=== PATIENT | female | born 1995 | race Two or more races ===

== ENCOUNTER 2020-11-28 13:42 | Outpatient (REF) | payer OTHER, SELFPAY ==
[2020-11-28 15:14] LABS: MANUAL DIFF FLAG NO
[2020-11-28 15:50] LABS: Basophils Absolute Auto 0.1 X10*3/uL (0.0-0.2); Basophils Percent Auto 0.7 % (0-2); Eosinophils Absolute Auto 0.4 X10*3/uL (0.0-0.4); Eosinophils Percent Auto 3.2 % (0-4); Hematocrit 38.6 % (37-47); Hemoglobin 13.3 g/dl (12.0-16.0); Imm Gran Abs Auto 0.04 X10*3/uL (0.00-0.03); Imm Gran Pct Auto 0.4 % (0.0-0.4); Lymphocytes Absolute Auto 2.9 X10*3/uL (1.2-4.9); Lymphocytes Percent Auto 25.2 % (20-40); Mean Corpuscular HGB Conc 34.5 g/dl (31.0-35.0); Mean Corpuscular Hemoglobin 31.1 pg (27.0-33.0); Mean Corpuscular Volume 90.2 fL (80-98); Mean Platelet Volume 10.5 fL (9.4-12.3); Monocytes Absolute Auto 1.1 X10*3/uL (0.1-1.2); Monocytes Percent Auto 9.5 % (2-11); Neutrophils Absolute Auto 6.9 X10*3/uL (2.0-8.3); Platelet Count 352 X10*3/uL (160-400); Red Blood Count 4.28 X10*6/uL (4.20-5.50); Red Cell Distribution Width 11.9 % (11.0-16.0); Retic HGB Equivalent 36.8 pg (30.0-35.0); Reticulocyte Percent 1.3 % (0.5-1.8); Reticulocytes Absolute 0.054 X10*6/uL (0.026-0.095); White Blood Count 11.4 X10*3/uL (4.8-10.8)
[2020-11-28 16:00] LABS: Iron 112 mcg/dL (30-160); Percent Iron Saturation 39 % (15-50); Total Iron Binding Capacity 289 mcg/dL (228-428); Unsaturated Iron Binding 177 ug/dL
[2020-11-28 16:22] LABS: Ferritin 114 ng/mL (10-122)
[2020-11-30 09:18] LABS: Folate 10.8 ng/mL (> or = 4.0); Vitamin B12 572 pg/mL (200-900)
== END 2020-11-28 13:43 | disposition home or self-care (01) ==
LOC: HO.HMGCLDS 13:42
PROVIDERS: PCP Internal Medicine; Visit Provider Internal Medicine
DX: R53.83 Other fatigue (principal)
CPT/HCPCS: 36415; 82607; 82728; 82746; 83540; 85025; 85045

== ENCOUNTER 2021-09-10 11:13 | Outpatient (REF) | payer OTHER, SELFPAY ==
[2021-09-10 11:23] LABS: MANUAL DIFF FLAG NO
[2021-09-10 11:34] LABS: Basophils Absolute Auto 0.1 X10*3/uL (0.0-0.2); Basophils Percent Auto 0.8 % (0-2); Eosinophils Absolute Auto 0.3 X10*3/uL (0.0-0.4); Eosinophils Percent Auto 3.3 % (0-4); Hematocrit 37.7 % (37.0-47.0); Hemoglobin 12.9 g/dl (12.0-16.0); Imm Gran Abs Auto 0.02 X10*3/uL (0.00-0.03); Imm Gran Pct Auto 0.2 % (0.0-0.4); Lymphocytes Absolute Auto 3.1 X10*3/uL (1.2-4.9); Lymphocytes Percent Auto 35.5 % (20-40); Mean Corpuscular HGB Conc 34.2 g/dl (31.0-35.0); Mean Corpuscular Volume 90.6 fL (80.0-98.0); Mean Platelet Volume 9.6 fL (9.4-12.3); Monocytes Absolute Auto 0.7 X10*3/uL (0.1-1.2); Monocytes Percent Auto 8.3 % (2-11); Neutrophils Absolute Auto 4.5 x10*3/uL (2.0-8.3); Neutrophils Percent Auto 51.9 % (45-73); Platelet Count 307 X10*3/uL (160-400); Red Blood Count 4.16 X10*6/uL (4.20-5.50); Red Cell Distribution Width 11.9 % (11.0-16.0); White Blood Count 8.6 X10*3/uL (4.8-10.8)
[2021-09-10 11:44] LABS: Estimated Average Glucose 100 mg/dL; Hemoglobin A1c % 5.1 %
[2021-09-10 12:21] LABS: Alanine Aminotransferase 25 U/L (0-31); Albumin Level 4.2 g/dL (3.5-5.0); Alkaline Phosphatase 73 U/L (39-117); Anion Gap 11 (12-20); Aspartate Amino Transferase 24 U/L (5-31); Bilirubin Total 0.6 mg/dL (0.0-1.0); Blood Urea Nitrogen 17 mg/dL (9-16); Calcium 9.7 mg/dL (8.4-10.2); Carbon Dioxide 24 mmol/L (22-29); Chloride 106 mmol/L (96-108); Cholesterol 186 mg/dL; Estimated Glomerular Filt Rate > 60; Glucose Fasting 92 mg/dL (60-99); HDL Cholesterol 47 mg/dL; LDL Cholesterol Calculated 128 mg/dl; Potassium 4.1 mmol/L (3.3-5.1); Sodium 137 mmol/L (135-145); Total Protein 7.9 g/dL (6.5-8.0); Triglycerides 55 mg/dL
[2021-09-10 12:32] LABS: Vitamin D 25-OH Total 27.2 ng/mL (>30)
[2021-09-10 13:13] LABS: Appearance Urine HAZY; Color Urine YELLOW; Glucose Urine UA NEG (NEG); Leukocyte Esterase Urine NEG (NEG); Nitrite Urine NEG (NEG); Specific Gravity - Urine >= 1.030 (1.005-1.025); UACC Culture Trigger NO; Urine Blood 1+ (NEG); Urine Ketones NEG (NEG); Urine Protein NEG (NEG-TRACE)
[2021-09-10 13:28] LABS: Squamous Epithelial Cell Urine 3+ /LPF; WBC Urine 0-2 /HPF (0-4)
[2021-09-10 13:29] LABS: Bacteria Urine TRACE /LPF; Mucus Urine 2+ /LPF
[2021-09-16 22:17] LABS: Testosterone, Free 7.8 pg/mL (0.1-6.4); Testosterone, Total 44 ng/dL (2-45)
== END 2021-09-10 11:14 | disposition home or self-care (01) ==
LOC: HO.LAB 11:13
PROVIDERS: PCP Internal Medicine; Visit Provider Internal Medicine
DX: Z00.00 Encounter for general adult medical examination without abnormal findings (principal); E28.2 Polycystic ovarian syndrome; L81.9 Disorder of pigmentation, unspecified; E55.9 Vitamin D deficiency, unspecified
CPT/HCPCS: 36415; 80053; 80061; 81001; 82306; 83036; 84402; 84403; 84443; 85025

== ENCOUNTER 2022-11-01 12:18 | Outpatient (REF) | payer OTHER, SELFPAY ==
--- NOTE | ~2022-11-01 | XR_ITS ---
EXAMINATION: XR CHEST CLINICAL INFORMATION: Dyspnea COMPARISON: None available. TECHNIQUE: 2 views of the chest were obtained. FINDINGS: No significant abnormality is noted involving the heart, lungs, mediastinum, bony thorax or soft tissues. XR/XR chest 2V IMPRESSION: Unremarkable examination.
[2022-11-01 12:32] LABS: MANUAL DIFF FLAG NO
[2022-11-01 12:53] LABS: Basophils Absolute Auto 0.1 X10*3/uL (0.0-0.2); Eosinophils Absolute Auto 0.5 X10*3/uL (0.0-0.4); Eosinophils Percent Auto 4.6 % (0-4); Hematocrit 40.3 % (37.0-47.0); Hemoglobin 13.8 g/dl (12.0-16.0); Imm Gran Abs Auto 0.04 X10*3/uL (0.00-0.03); Imm Gran Pct Auto 0.4 % (0.0-0.4); Lymphocytes Percent Auto 30.5 % (20-40); Mean Corpuscular HGB Conc 34.2 g/dl (31.0-35.0); Mean Corpuscular Hemoglobin 31.4 pg (27.0-33.0); Mean Corpuscular Volume 91.8 fL (80.0-98.0); Mean Platelet Volume 9.8 fL (9.4-12.3); Monocytes Absolute Auto 0.7 X10*3/uL (0.1-1.2); Monocytes Percent Auto 7.4 % (2-11); Neutrophils Absolute Auto 5.4 x10*3/uL (2.0-8.3); Neutrophils Percent Auto 56.1 % (45-73); Platelet Count 308 X10*3/uL (160-400); Red Blood Count 4.39 X10*6/uL (4.20-5.50); Red Cell Distribution Width 12.3 % (11.0-16.0); White Blood Count 9.7 X10*3/uL (4.8-10.8)
[2022-11-01 13:14] LABS: Estimated Average Glucose 97 mg/dL
[2022-11-01 13:26] LABS: Appearance Urine Cloudy; Color Urine Yellow; Glucose Urine UA Negative (Negative); Leukocyte Esterase Urine Trace (Negative); Nitrite Urine Negative (Negative); PH 8.5 (5.0-9.0); UMIC TRIGGER UACC YES; Urine Blood Small (1+) (Negative); Urine Ketones Negative (Negative); Urine Protein Negative (Neg-Trace)
[2022-11-01 13:32] LABS: Bacteria Urine Trace (None Seen); Hyaline Casts Urine 0-2 /LPF (0-2); Squamous Epithelial Cell Urine >20 /HPF (0-2); WBC Urine 0-5 /HPF (0-5)
[2022-11-01 13:54] LABS: Alanine Aminotransferase 22 U/L (0-31); Albumin Level 4.5 g/dL (3.5-5.0); Alkaline Phosphatase 90 U/L (39-117); Anion Gap 10 (12-20); Aspartate Amino Transferase 24 U/L (5-31); Bilirubin Total 0.4 mg/dL (0.0-1.0); Blood Urea Nitrogen 13 mg/dL (9-16); Calcium 10.2 mg/dL (8.4-10.2); Carbon Dioxide 27 mmol/L (22-29); Chloride 106 mmol/L (96-108); Estimated Glomerular Filt Rate > 60; Glucose Fasting 88 mg/dL (60-99); Potassium 4.3 mmol/L (3.3-5.1); Sodium 139 mmol/L (135-145); Total Protein 8.3 g/dL (6.5-8.0)
[2022-11-01 14:10] LABS: TSH reflex Free T4 0.77 uIU/mL (0.32-4.0); Vitamin D 25-OH Total 38.3 ng/mL (>30)
== END 2022-11-01 12:19 | disposition home or self-care (01) ==
LOC: HO.XRAY 12:18
PROVIDERS: PCP Internal Medicine; Visit Provider Internal Medicine
DX: Z00.00 Encounter for general adult medical examination without abnormal findings (principal); R06.00 Dyspnea, unspecified; E28.2 Polycystic ovarian syndrome; E55.9 Vitamin D deficiency, unspecified; R73.9 Hyperglycemia, unspecified; R30.0 Dysuria
CPT/HCPCS: 36415; 71046; 80053; 81001; 82306; 83036; 84443; 85025

== ENCOUNTER 2023-01-05 16:26 | Outpatient (AMB) | payer OTHER, SELFPAY ==
--- NOTE | 2023-01-05 16:27 | MHC.OFFVIS ---
Intake Vital Signs 01/05/23 16:29 Height 5 ft 4 in Weight 138 lb 14.259 oz BMI 23.8 BP 104/50 L Blood Pressure Location Lt brachial Position Sitting Pulse 56 Pulse Source Pulse Oximeter Intake Visit Reasons: PCOS Intake Note: New patient present today for PCOS. Previously managed by PCP. 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 Menarche was age age 14 . Currently 8 wks but menses have been normal OCP use: No Metformin use: No Weight gain: No Hirsutism/hyperandrogenism: No Ovarian U/S: Y T2DM or acanthosis: N Lipids: N BP: N Labs: She had a complete workup including DHEA-S, testosterone, 17 hydroxyprogesterone which proved to show PCOS PFSH Medical History Anxiety PCOS (polycystic ovarian syndrome) Surgical History No pertinent past surgical history Family History Father Medical history unknown Mother Osteoarthritis Maternal Grandmother Hypertension Social History (Updated 09/13/22 @ 19:07 by Parker Yip MD) Housing: Apartment Alcohol intake: current Alcohol intake frequency: holidays/special occasions only Patient Tobacco Use Status: Never used Tobacco e-Cigarette/Vaping Use: Never Used Second Hand Smoke Exposure: No Substance Use Type: Marijuana service: No Current occupational status: employed Cognitive needs: No Hearing needs: No Vision needs: No Physical Exam Const Other: There is absence of cushingoid features. Thyroid gland is normal size weighs about 15 g. There are no thyroid nodules palpated. Lungs are clear to auscultation. Heart is S1-S2. Abdominal exam is benign Assessment & Plan Assessment & Plan (1) PCOS (polycystic ovarian syndrome): Code(s): E28.2 - Polycystic ovarian syndrome Plan: This is a 27-year-old white female with history of PCOS. Alternative diagnosis should his adrenal tumor, ovarian tumor, congenital adrenal hyperplasia have been ruled out. She is currently , nonobese and does not have significant hirsutism The plan is to have the patient returned to the care of her instructor adjunct surgical technician and primary care and return to endocrinology as needed. It might be helpful after the to have the patient have a nutritional consult at some point Coding Level of Care Code New Pt Level 4 (51138) Diagnoses PCOS (polycystic ovarian syndrome) E28.2
[2023-01-05 16:29] VITALS: BP 104/50; PULSE 56; BMI 23.8
== END 2023-01-05 16:48 | disposition home or self-care (01) ==
PROVIDERS: PCP Internal Medicine; Visit Provider Internal Medicine Endocrinology, Diabetes & Metabolism
DX: E28.2 Polycystic ovarian syndrome (principal)
CPT/HCPCS: 99204

== ENCOUNTER → 2023-01-05 16:26 | Outpatient (BNVA) | payer OTHER, SELFPAY | PROVIDERS: PCP Internal Medicine; Visit Provider Internal Medicine Endocrinology, Diabetes & Metabolism | DX: O99.281 Endocrine, nutritional and metabolic diseases complicating pregnancy, first trimester (principal); E28.2 Polycystic ovarian syndrome; O99.321 Drug use complicating pregnancy, first trimester; F12.20 Cannabis dependence, uncomplicated; Z3A.08 8 weeks gestation of pregnancy | CPT/HCPCS: 99202 ==

== ENCOUNTER 2023-01-13 16:38 | Outpatient (AMB) | payer OTHER, SELFPAY ==
[2023-01-13 16:40] VITALS: BP 112/68; PULSE 81; O2SAT 98; BMI 24.5
--- NOTE | 2023-01-13 16:40 | MHC.PC.OV ---
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 Accompanied by: Self / Same As Patient Allergies No Known Allergies Allergy (Verified 01/14/23 20:45) Medication List - Last Reconciled 01/14/23 by Parker Yip MD bupropion HCl 300 mg PO QAM 30 days PNV,calcium 60-xymq-wbnhm acid 27 mg iron- 1 mg ( Vitamins Plus Low Iron) 1 tab PO DAILY Tobacco use date assessed: 01/13/23 Dental Screening Dental Screen Date: 01/13/23 Did you have a dental visit in the last 12 months?: Yes Did you have a dental problem in the last 6 months where you did not have access to dental care?: No Was dental information given to patient?: Patient has dentist HPI 4 month f/u HPI Details Patient comes in today for her follow up visit States that she feels okay Denies any headaches or dizziness Denies any chest pain Still has some mild SOB at times; think she was supposed to have her pulmonary function test done a couple of days ago but she did not make her appointment No nausea/vomiting, no abdominal pain No change in bowel habits noted Adds that she has a large bald spot on the left side of her scalp that she has had for a while now but states that it seems to be getting bigger in size lately Denies any itching or pain over the bald area on her scalp Would like to know how she did on her labs done a couple of months ago PFSH Medical History Anxiety PCOS (polycystic ovarian syndrome) Surgical History No pertinent past surgical history Family History Father Medical history unknown Mother Osteoarthritis Maternal Grandmother Hypertension Social History Housing: Apartment Alcohol intake: current Alcohol intake frequency: holidays/special occasions only Patient Tobacco Use Status: Never used Tobacco e-Cigarette/Vaping Use: Never Used Second Hand Smoke Exposure: No Substance Use Type: Marijuana service: No Current occupational status: employed Cognitive needs: No Hearing needs: No Vision needs: No Questionnaire PHQ-9 Over the last 2 weeks, how often have you been bothered by any of the following problems? 1. Little interest or pleasure in doing things: not at all 2. Feeling down, depressed, or hopeless: not at all 3. Trouble falling or staying asleep, or sleeping too much: not at all 4. Feeling tired or having little energy: not at all 5. Poor appetite or overeating: not at all 6. Feeling bad about yourself - or that you are a failure or have let yourself or your family down: not at all 7. Trouble concentrating on things, such as reading the newspaper or watching television: not at all 8. Moving or speaking so slowly that other people could have noticed. Or the opposite - being so fidgety or restless that you have been moving around a lot more than usual: not at all 9. Thoughts that you would be better off or of hurting yourself in some way: not at all Total score: 0 Depression Screening Interpretation: Negative 23140 - PHQ-9 Billing: Yes Source: Developed by Drs. Solis Gray, Sloane Ordoñez, Faraz Cunningham and colleagues, with an educational valeria from [employer]. Thrive Questionnaire Date Thrive assessed: 01/13/23 I am a: Patient What is your living situation today?: I have a steady place to live Within the past 12 months, did the food you bought not last and you didn't have the money to get more?: Never true Within the past 12 months, did you worry whether your food would run out before you got money to buy more?: Never true Do you have trouble paying for medicines?: No Do you have trouble getting transportation to medical appointments?: No Do you have trouble paying your heating and electricity bill?: No Do you have trouble taking care of your child, family member or friend?: No Do you have trouble with day-to-day activities such as bathing, preparing meals, shopping, managing finances, etc.?: No Are you currently unemployed and looking for a job?: No Are you interested in more education?: No Please select the resources that you would like help with: None Currently or been in a relationship where the following occur: no concerns reported AUDIT C Alcohol Use Questionnaire (AUDIT-C) 1. How often do you have a drink containing alcohol?: Monthly or less 2. How many drinks containing alcohol do you have on a typical day when you are drinking?: 1 or 2 3. How often do you have six or more drinks on one occasion?: Never Total Score: 1 Score Reviewed/Action Taken: Yes NATALI-7 AMB Questionnaire NATALI-7 Date NATALI - 7 assessed: 01/13/23 Feeling nervous, anxious, or on edge: 2 = More than half the days Not being able to stop or control worryin = More than half the days Worrying too much about different things: 2 = More than half the days Trouble relaxin = More than half the days Being so restless that it is hard to sit still: 2 = More than half the days Becoming easily annoyed or irritable: 2 = More than half the days Feeling afraid as if something awful might happen: 2 = More than half the days Total NATALI-7 score (0-4 normal; 5-9 mild; 10-14 moderate; 15-21 severe): 14 Source: Developed by Drs. Solis Gray, Sloane Ordoñez, Faraz Cunningham and colleagues, with an educational valeria from [employer]. Review of Systems Const Denies fatigue, Denies fever(s) and Denies headache(s) ENT Denies dysphagia, Denies dizziness, Denies otalgia, Denies headache(s), Denies neck pain, Denies odynophagia and Denies sore throat Card Denies chest pain, Denies rapid heart rate, Denies irregular heart rhythm, Denies palpitations and Denies dyspnea (but reports some chest tightness at times) Resp Denies chest congestion, Denies cough, Denies dyspnea (but reports some chest tightness at times) and Denies wheezing GI Denies abdominal pain, Denies constipation, Denies dysphagia, Denies heartburn, Denies diarrhea, Denies nausea, Denies odynophagia and Denies vomiting Denies urinary frequency, Denies dysuria and Denies urinary urgency Musc Denies back pain, Denies arthralgias and Denies neck pain Skin/Breast Details: (+) large bald spot on the left side of her scalp - states that this appears to be getting bigger in size lately Neuro Denies dizziness, Denies headache(s) and Denies paresthesias Psych Denies anxiety (better controlled on current Rx) and Denies depression Endo Denies fatigue and Denies palpitations Randal/Lymph Denies easy bruising Aller/Immun Denies wheezing Physical exam (Primary Care) Vital Signs: Last Vital Signs Pulse 81 01/13/23 16:40 BP 112/68 01/13/23 16:40 Pulse Ox 98 01/13/23 16:40 Oxygen Delivery Method Room Air 01/13/23 16:40 BMI result Body Mass Index 24.5 Tobacco/Smoking Status: Tobacco use Status Tobacco use date assessed 01/13/23 01/13/23 16:42 Patient Tobacco Use Status Never used Tobacco 01/13/23 16:42 e-Cigarette/Vaping Use Never Used 01/13/23 16:42 PHQ-9: PHQ-9 Score PHQ-9: Total score 0 01/14/23 20:47 Depression Screening Interpretation: Negative Thrive Assessment: Date of Thrive Assessment Date Thrive assessed 01/13/23 01/13/23 16:42 Currently or been in a relationship where the following occur: no concerns reported Const General: no acute distress and awake HENMT Ears: external ears normal and TM's normal bilaterally Throat: Yes posterior oropharynx normal and Yes tonsils normal (no TP congestion) Neck Neck: Yes no lymphadenopathy and Yes supple Thyroid: Thyroid normal Resp Auscultation: clear to auscultation bilaterally, no rales and no wheezes Cardio Rate: regular rate Rhythm: regular rhythm Heart sounds: no murmurs GI Palpation (GI): Soft to palpation and nontender Auscultation: normal bowel sounds General: Yes no CVA tenderness Back/Spine/Pelvis Back: no CVA tenderness Thoracic/Lumbar Spine: thoracic and lumbar spine normal to inspection Skin Other: (+) large circular patch of hair loss on her left parietal scalp area Rashes: no rashes Extrem General: Yes no clubbing, cyanosis or edema Results Reviewed Results Reviewed: Laboratory Tests 11/01/22 11/01/22 11/01/22 12:30 12:31 12:31 WBC 9.7 Hgb 13.8 Hct 40.3 Plt Count 308 Sodium 139 Potassium 4.3 Creatinine 0.77 Estimated GFR > 60 Fasting Glucose 88 Hemoglobin A1c % Calcium 10.2 AST 24 ALT 22 25-OH Vitamin D Total 38.3 TSH 0.77 Ur Specific Casey 1.020 Urine Protein Negative Urine Glucose (UA) Negative Urine Blood Small (1+) H 11/01/22 12:31 WBC Hgb Hct Plt Count Sodium Potassium Creatinine Estimated GFR Fasting Glucose Hemoglobin A1c % 5.0 Calcium AST ALT 25-OH Vitamin D Total TSH Ur Specific Casey Urine Protein Urine Glucose (UA) Urine Blood Assessment and Plan Assessment & Plan (1) PCOS (polycystic ovarian syndrome): Code(s): E28.2 - Polycystic ovarian syndrome Plan: Results of her labs done a couple of months ago reviewed and discussed with patient Follow up with endocrinology and with 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 as scheduled (2) Alopecia: Code(s): L65.9 - Nonscarring hair loss, unspecified Plan: Will refer her to Dermatology for further evaluation and management of the enlarging bald spot on her left parietal scalp area (3) Dyspnea: Comment: Symptoms are more of on and off chest tightness and non-specific lung pain with deep breathing Code(s): R06.00 - Dyspnea, unspecified Qualifiers: Dyspnea type: unspecified Qualified Code(s): R06.00 - Dyspnea, unspecified Plan: Patient is advised that her chest x-rays done a few months ago came out normal add that her respiratory symptoms are most likely related to her chronic marijuana smoking She was referred for PFTs for further evaluation - was scheduled for this a few days ago but she reportedly missed her appt Is instructed to contact the respiratory department on her own LEISA so she can get her PFT rescheduled (4) Marijuana smoker, continuous: Comment: Has been smoking a lot of marijuana (>10 rolls a day) for over 10 years Code(s): F12.90 - Cannabis use, unspecified, uncomplicated Plan: Chest x-rays done a few months ago came out normal Counseled on smoking cessation - advised to at least start cutting back on her smoking marijuana (5) Anxiety: Code(s): F41.9 - Anxiety disorder, unspecified Plan: Continue Bupropion XL 300 mg QD - states that her anxiety is well controlled on her current medication Plan To return in August 2023 for her next annual physical examination Orders: Referrals Dermatology Referral L65.9 - Nonscarring hair loss, unspecified Coding Level of Care Code Est Pt Level 4 (81220) Diagnoses PCOS (polycystic ovarian syndrome) E28.2 Alopecia L65.9 Dyspnea R06.00 Dyspnea type: unspecified Marijuana smoker, continuous F12.90 Anxiety F41.9
== END 2023-01-13 17:25 | disposition home or self-care (01) ==
PROVIDERS: PCP Internal Medicine; Visit Provider Internal Medicine
DX: E28.2 Polycystic ovarian syndrome (principal); F41.9 Anxiety disorder, unspecified; L65.9 Nonscarring hair loss, unspecified; R06.00 Dyspnea, unspecified; F12.90 Cannabis use, unspecified, uncomplicated
CPT/HCPCS: 99214

== ENCOUNTER 2023-12-27 14:29 | Outpatient (AMB) | payer OTHER, SELFPAY ==
[2023-12-27 14:32] VITALS: BP 102/60; PULSE 70; O2SAT 98; BMI 28.1
--- NOTE | 2023-12-27 14:32 | A.OFFPC_ITS ---
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 per policy Accompanied by: Self / Same As Patient Allergies No Known Allergies Allergy (Verified 12/27/23 14:59) Medication List - Last Reconciled 12/27/23 by Parker Yip MD bupropion HCl XL 300 mg PO QAM 30 days PNV,calcium 81-tcwz-ctmhh acid 27 mg iron- 1 mg ( Vitamins Plus Low Iron ) 1 tab PO DAILY Tobacco use date assessed: 12/27/23 Dental Screening Dental Screen Date: 12/27/23 HPI FMLA Depression HPI Details Patient comes in today for her follow up visit States that she has been out of work on maternity leave since 08/05/2023, which ended a few weeks ago on 12/05/2023 States that she has been experiencing increased depression, likely depression, since July 2023 She has been on Wellbutrin XL 300 mg QD, which she feels helps, but states that she still has recurrent swings in her mood often She has apparently been taking her Wellbutrin XL only on an as needed basis instead of daily as she was supposed to She would like to see if she can get a note from us to allow her to extend her leave and continue to stay out of work for some more time to deal with her depression She denies any headaches or dizziness Denies any chest pains, no SOB No nausea/vomiting, no abdominal pain No change in bowel habits noted [facility] Medical History (Updated 12/27/23 @ 15:23 by Parker Yip MD) Anxiety PCOS (polycystic ovarian syndrome) Surgical History No pertinent past surgical history Family History Father Medical history unknown Mother Osteoarthritis Maternal Grandmother Hypertension Social History Housing: Apartment Alcohol intake: current Alcohol intake frequency: holidays/special occasions only Patient Tobacco Use Status: Never used Tobacco e-Cigarette/Vaping Use: Never Used Second Hand Smoke Exposure: No Substance Use Type: Marijuana service: No Current occupational status: employed Cognitive needs: No Hearing needs: No Vision needs: No Questionnaire PHQ-9 Over the last 2 weeks, how often have you been bothered by any of the following problems? 1. Little interest or pleasure in doing things: several days 2. Feeling down, depressed, or hopeless: several days 3. Trouble falling or staying asleep, or sleeping too much: more than half the days 4. Feeling tired or having little energy: several days 5. Poor appetite or overeating: not at all 6. Feeling bad about yourself - or that you are a failure or have let yourself or your family down: not at all 7. Trouble concentrating on things, such as reading the newspaper or watching television: several days 8. Moving or speaking so slowly that other people could have noticed. Or the op posite - being so fidgety or restless that you have been moving around a lot more than usual: not at all 9. Thoughts that you would be better off or of hurting yourself in some way: not at all Total score: 6 Depression Screening Interpretation: Positive Depression Screening Follow-up: Existing condition and In treatment Depression Screening Done: Yes 65272 - PHQ-9 Billing: Yes Source: Developed by Drs. Solis Gray, Sloane Ordoñez, Faraz Cunningham and colleagues, with an educational valeria from [employer]. Thrive Questionnaire Date Thrive assessed: 12/27/23 I am a: Patient What is your living situation today?: I have a steady place to live Within the past 12 months, did the food you bought not last and you didn't have the money to get more?: Never true Within the past 12 months, did you worry whether your food would run out before you got money to buy more?: Never true Do you have trouble paying for medicines?: No Do you have trouble getting transportation to medical appointments?: No Do you have trouble paying your heating and electricity bill?: No Do you have trouble taking care of your child, family member or friend?: No Do you have trouble with day-to-day activities such as bathing, preparing meals, shopping, managing finances, etc.?: No Are you currently unemployed and looking for a job?: No Are you interested in more education?: No Please select the resources that you would like help with: None Currently or been in a relationship where the following occur: No concerns reported THRIVE Score: 0 AUDIT C Alcohol Use Questionnaire (AUDIT-C) 1. How often do you have a drink containing alcohol?: Monthly or less 2. How many drinks containing alcohol do you have on a typical day when you are drinking?: 1 or 2 3. How often do you have six or more drinks on one occasion?: Never Total Score: 1 Score Reviewed/Action Taken: Yes NATALI-7 AMB Questionnaire NATALI-7 Date NATALI - 7 assessed: 12/27/23 Source: Developed by Drs. Solis Gray, Sloane Ordoñez, Faraz Cunningham and colleagues, with an educational valeria from [employer]. Review of Systems Const Denies chills, Reports fatigue, Denies fever(s) and Denies headache(s) ENT Denies dysphagia, Denies dizziness, Denies otalgia, Denies headache(s), Denies neck pain, Denies odynophagia and Denies sore throat Card Denies chest pain, Denies palpitations and Denies dyspnea Resp Denies cough and Denies dyspnea GI Denies abdominal pain, Denies constipation, Denies dysphagia, Denies heartburn, Denies diarrhea, Denies nausea, Denies odynophagia and Denies vomiting Denies difficulty voiding, Denies nocturia, Denies dysuria and Denies urinary urgency Musc Denies back pain and Denies neck pain Skin/Breast Denies rash Neuro Denies dizziness and Denies headache(s) Psych Reports anxiety and Reports depression Endo Reports fatigue and Denies palpitations Physical exam (Primary Care) Vital Signs: Last Vital Signs Pulse 70 12/27/23 14:32 BP 102/60 12/27/23 14:32 Pulse Ox 98 12/27/23 14:32 Oxygen Delivery Method Room Air 12/27/23 14:32 BMI result Body Mass Index 28.1 Tobacco/Smoking Status: Tobacco use Status Tobacco use date assessed 12/27/23 12/27/23 14:33 Patient Tobacco Use Status Never used Tobacco 12/27/23 14:33 e-Cigarette/Vaping Use Never Used 12/27/23 14:33 PHQ-9: PHQ-9 Score PHQ-9: Total score 0 12/27/23 14:43 Depression Screening Interpretation: Positive Depression Screening Follow-up: Existing condition and In treatment Thrive Assessment: Date of Thrive Assessment Date Thrive assessed 12/27/23 12/27/23 14:33 Currently or been in a relationship where the following occur: No concerns reported Const General: no acute distress and alert HENMT Throat: Yes posterior oropharynx normal and Yes tonsils normal (no TP congestion) Neck Neck: Yes no lymphadenopathy and Yes supple Thyroid: Thyroid normal Resp Auscultation: clear to auscultation bilaterally, no rales and no wheezes Cardio Rate: regular rate Rhythm: regular rhythm Heart sounds: no murmurs GI Palpation (GI): Soft to palpation and nontender Auscultation: normal bowel sounds General: Yes no CVA tenderness Back/Spine/Pelvis Back: no CVA tenderness Thoracic/Lumbar Spine: No lumbar spinal tenderness Skin Rashes: no rashes Extrem General: Yes no clubbing, cyanosis or edema Assessment and Plan Assessment & Plan (1) depression: Code(s): F53.0 - depression Plan: Have advised patient that Her Wellbutrin XL 300 mg QD should be taken daily for it to help with her depression and that taking it on a PRN basis will not help - advised her to start taking it daily beginning tomorrow morning and to at least continue on it until her next appointment Will okay the office to give her a note to keep her out of work for a few more weeks Plan To return in 3 months for her next annual physical examination Coding Level of Care Code Est Pt Level 3 (80799) Diagnoses depression F53.0
== END 2023-12-27 15:03 | disposition home or self-care (01) ==
PROVIDERS: PCP Internal Medicine; Visit Provider Internal Medicine
DX: F53.0 Postpartum depression (principal)
CPT/HCPCS: 99213

== ENCOUNTER 2024-08-27 17:03 | Outpatient (AMB) | payer OTHER, SELFPAY ==
[2024-08-27 17:18] VITALS: BP 100/66; PULSE 60; RESP 16; TEMP 36.4; O2SAT 99; BMI 27.3
--- NOTE | 2024-08-27 17:18 | MHC.PC.OV ---
Vital Signs 08/27/24 17:18 Height 5 ft 4 in Weight 159 lb BMI 27.3 BP 100/66 Blood Pressure Location Lt brachial Position Sitting Respiration 16 Pulse 60 Pulse Source Pulse Oximeter Temp 97.5 F Temp Source Temporal Artery Scan Pulse Oximetry (%) 99 Oxygen Delivery Method Room Air Intake Visit Reasons: Annual PE Hedis Manager Required: No Accompanied by: Self / Same As Patient Allergies No Known Allergies Allergy (Verified 08/27/24 17:26) Medication List - Last Reconciled 08/27/24 by Parker Yip MD bupropion HCl XL 300 mg PO QAM 30 days Tobacco use date assessed: 08/27/24 Dental Screening Dental Screen Date: 08/27/24 Did you have a dental visit in the last 12 months?: Yes Did you have a dental problem in the last 6 months where you did not have access to dental care?: No Was dental information given to patient?: Patient has dentist HPI Annual PE HPI Details Patient comes in today for her annual physical examination States that she feels okay and currently has no acute issues She denies any headaches or dizziness Denies any chest pains, no shortness of breath No nausea/vomiting, no abdominal pain No change in bowel habits noted She denies any acute urinary symptoms She has not had yearly gynecology exam and pap smear done in a few years [facility] Medical History (Updated 09/01/24 @ 19:12 by Parker Yip MD) Overweight (BMI 25.0-29.9) Anxiety PCOS (polycystic ovarian syndrome) Surgical History No pertinent past surgical history Family History Father Medical history unknown Mother Osteoarthritis Maternal Grandmother Hypertension Social History Housing: Apartment Alcohol intake: current Alcohol intake frequency: holidays/special occasions only Patient Tobacco Use Status: Never used Tobacco e-Cigarette/Vaping Use: Never Used Second Hand Smoke Exposure: No Substance Use Type: Marijuana service: No Current occupational status: employed 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 1. Little interest or pleasure in doing things: not at all 2. Feeling down, depressed, or hopeless: several days 3. Trouble falling or staying asleep, or sleeping too much: not at all 4. Feeling tired or having little energy: several days 5. Poor appetite or overeating: not at all 6. Feeling bad about yourself - or that you are a failure or have let yourself or your family down: not at all 7. Trouble concentrating on things, such as reading the newspaper or watching television: not at all 8. Moving or speaking so slowly that other people could have noticed. Or the opposite - being so fidgety or restless that you have been moving around a lot more than usual: not at all 9. Thoughts that you would be better off or of hurting yourself in some way: not at all Total score: 2 Depression Screening Interpretation: Negative Depression Screening Done: Yes 81728 - PHQ-9 Billing: Yes Source: Developed by Drs. Solis Gray, Sloane Ordoñez, Faraz Cunningham and colleagues, with an educational valeria from [employer]. Thrive Questionnaire Date Thrive assessed: 08/27/24 I am a: Patient What is your living situation today?: I have a steady place to live Within the past 12 months, did the food you bought not last and you didn't have the money to get more?: I choose not to answer this question Within the past 12 months, did you worry whether your food would run out before you got money to buy more?: I choose not to answer this question Do you have trouble paying for medicines?: No Do you have trouble getting transportation to medical appointments?: No Do you have trouble paying your heating and electricity bill?: No Do you have trouble taking care of your child, family member or friend?: No Do you have trouble with day-to-day activities such as bathing, preparing meals, shopping, managing finances, etc.?: No Are you currently unemployed and looking for a job?: No Are you interested in more education?: I choose not to answer this question Please select the resources that you would like help with: None Currently or been in a relationship where the following occur: I choose not to answer THRIVE Score: 0 AUDIT C Alcohol Use Questionnaire (AUDIT-C) 1. How often do you have a drink containing alcohol?: Never 2. How many drinks containing alcohol do you have on a typical day when you are drinking?: 1 or 2 3. How often do you have six or more drinks on one occasion?: Never Total Score: 0 Score Reviewed/Action Taken: Yes NATALI-7 AMB Questionnaire NATALI-7 Date NATALI - 7 assessed: 08/27/24 Feeling nervous, anxious, or on edge: 2 = More than half the days Not being able to stop or control worryin = More than half the days Worrying too much about different things: 2 = More than half the days Trouble relaxin = Not at all Being so restless that it is hard to sit still: 0 = Not at all Becoming easily annoyed or irritable: 1 = Several days Feeling afraid as if something awful might happen: 1 = Several days Total NATALI-7 score (0-4 normal; 5-9 mild; 10-14 moderate; 15-21 severe): 8 Source: Developed by Drs. Solis Gray, Sloane Ordoñez, Faraz Cunningham and colleagues, with an educational valeria from [employer]. NATALI-7 Assessment Billing NATALI-7 Assessment Tool: NATALI-7 Assessment 00005 Review of Systems Const Denies chills, Denies fatigue, Denies fever(s), Denies headache(s) and Denies malaise Eyes Denies blurry vision, Denies change in vision, Denies irritation and Denies itchy eyes ENT Denies dysphagia, Denies dizziness, Denies otalgia, Denies headache(s), Denies nasal congestion, Denies neck pain, Denies odynophagia, Denies sinus pain and Denies sore throat Card Denies chest pain, Denies rapid heart rate, Denies irregular heart rhythm, Denies palpitations and Denies dyspnea Resp Denies chest congestion, Denies cough, Denies dyspnea and Denies wheezing GI Denies abdominal pain, Denies bloating, Denies constipation, Denies dysphagia, Denies heartburn, Denies diarrhea, Denies nausea, Denies odynophagia and Denies vomiting Denies hematuria, Denies urinary frequency, Denies dysuria, Denies urinary incontinence and Denies urinary urgency Musc Denies back pain, Denies arthralgias, Denies joint swelling, Denies muscle weakness and Denies neck pain Skin/Breast Denies breast pain, Denies breast mass, Denies change in pigmentation, Denies lesions, Denies rash and Denies unusual bruising Neuro Denies dizziness, Denies headache(s) and Denies paresthesias Psych Denies anxiety and Denies depression Endo Denies fatigue and Denies palpitations Randal/Lymph Denies easy bruising Aller/Immun Denies itchy eyes and Denies wheezing Physical exam (Primary Care) Vital Signs: Last Vital Signs Temp 97.5 F 08/27/24 17:18 Pulse 60 08/27/24 17:18 Resp 16 08/27/24 17:18 BP 100/66 08/27/24 17:18 Pulse Ox 99 08/27/24 17:18 Oxygen Delivery Method Room Air 08/27/24 17:18 BMI result Body Mass Index 27.3 Tobacco/Smoking Status: Tobacco use Status Tobacco use date assessed 08/27/24 08/27/24 17:25 Patient Tobacco Use Status Never used Tobacco 08/27/24 17:25 e-Cigarette/Vaping Use Never Used 08/27/24 17:25 PHQ-9: PHQ-9 Score PHQ-9: Total score 2 08/27/24 17:28 Depression Screening Interpretation: Negative Thrive Assessment: Date of Thrive Assessment Date Thrive assessed 08/27/24 08/27/24 17:25 Currently or been in a relationship where the following occur: I choose not to answer Const General: no acute distress, alert and awake Orientation/consciousness: patient oriented x3 HENMT Head: Yes normocephalic and Yes atraumatic Ears: external ears normal, TM's normal bilaterally and EAC's normal General nose exam: No nasal discharge present Face and sinus: Yes normal facial exam and Yes sinuses nontender Teeth and gingiva: dentition normal Throat: Yes posterior oropharynx normal and Yes tonsils normal (no TP congestion) Eyes Eyelids: Yes eyelids normal Conjunctivae: conjunctivae normal Pupils: Equal, round and reactive pupils present EOM: EOMs intact bilaterally Neck Neck: Yes no lymphadenopathy and Yes supple Thyroid: Thyroid normal Resp Auscultation: clear to auscultation bilaterally, no rales and no wheezes Cardio Rate: regular rate Rhythm: regular rhythm Heart sounds: no murmurs GI Palpation (GI): Soft to palpation, nontender and No hepatosplenomegaly present Auscultation: normal bowel sounds General: Yes no CVA tenderness Back/Spine/Pelvis Back: no CVA tenderness Thoracic/Lumbar Spine: thoracic and lumbar spine normal to inspection Skin Lesions: no lesions Rashes: no rashes Neuro General: patient oriented x3, moves all extremities, no focal motor deficits and CN's II-XI intact bilaterally Cranial nerves: Yes Equal, round and reactive pupils present Cognition (Neuro): normal cognition Gait exam (Neuro): Normal gait present Extrem General: Yes no clubbing, cyanosis or edema Coding Level of Care Code Est Pt Prev Care 18-39y(85051) Diagnoses Annual physical exam Z00.00 PCOS (polycystic ovarian syndrome) E28.2 Alopecia L65.9 Anxiety F41.9 Marijuana smoker, continuous F12.90 Overweight (BMI 25.0-29.9) E66.3 Cervical cancer screening Z12.4 Additional Codes NATALI-7 Assessment Billing - NATALI-7 Assessment Tool: NATALI-7 Assessment 56842 ([id number]) PHQ-9 - 85831 - PHQ-9 Billing: Yes ([id number]) Assessment & Plan Assessment & Plan (1) Annual physical exam: Code(s): Z00.00 - Encounter for general adult medical examination without abnormal findings Category: Medical Plan: Check labs She has not had her yearly gynecology exam and pap smear done in a few years now and will need to get these updated (2) PCOS (polycystic ovarian syndrome): Code(s): E28.2 - Polycystic ovarian syndrome Category: Medical Plan: Follow up with endocrinology and with OB-Life Skills Coordinator as scheduled (3) Alopecia: Code(s): L65.9 - Nonscarring hair loss, unspecified Category: Medical Plan: Follow up with dermatology as scheduled (4) Anxiety: Code(s): F41.9 - Anxiety disorder, unspecified Category: Medical Plan: Patient used to take Wellbutrin for her anxiety but she self-discontinued this a few months ago States that she currently feels okay and does not need any Rx for anxiety at this time (5) Marijuana smoker, continuous: Comment: Has been smoking a lot of marijuana (>10 rolls a day) for over 10 years Code(s): F12.90 - Cannabis use, unspecified, uncomplicated Category: Medical Plan: Patient is counseled again on the potential dangers of heavy, continued marijuana smoking and is advised to quit (6) Overweight (BMI 25.0-29.9): Code(s): E66.3 - Overweight Category: Medical Plan: Reinforced diet/exercise as tolerated/lose weight (7) Cervical cancer screening: Code(s): Z12.4 - Encounter for screening for malignant neoplasm of cervix Category: Medical Plan: Will refer her back to OB-Life Skills Coordinator to get her yearly gynecology exam and pap smear updated LEISA Plan To return in 1 year for her next annual physical examination Orders: Orders Complete Blood Count Auto Diff 08/27/24 D64.9 - Anemia, unspecified, Z00.00 - Encounter for general adult medical examination without abnormal findings Comprehensive Iselin. Panel Fast 08/27/24 E78.00 - Pure hypercholesterolemia, unspecified, Z00.00 - Encounter for general adult medical examination without abnormal findings TSH reflex Free T4 08/27/24 E78.00 - Pure hypercholesterolemia, unspecified, Z00.00 - Encounter for general adult medical examination without abnormal findings UA CC w/rflx Micro + Cult 08/27/24 R30.0 - Dysuria, Z00.00 - Encounter for general adult medical examination without abnormal findings Lipid Panel 08/27/24 E78.00 - Pure hypercholesterolemia, unspecified, Z00.00 - Encounter for general adult medical examination without abnormal findings Vitamin D 25-OH Total 08/27/24 E55.9 - Vitamin D deficiency, unspecified, Z00.00 - Encounter for general adult medical examination without abnormal findings Referrals DISTRICT LOSS PREVENTION MANAGER Referral Z12.4 - Encounter for screening for malignant neoplasm of cervix
--- OUTSIDE RECORDS SUMMARY | 2024-08-27 18:59 | XMS_ITS | Clinical Summary ---
Author Organization [facility] Address [address] [place] [id number] Care Team Providers Care Flooring Mechanic Name Role Phone Trina Connolly MD Primary Care Provider Social History Tobacco Use Types Packs/Day Years Used Date Smoking Tobacco: Never Smokeless Tobacco: Never Alcohol Use Standard Drinks/Week Comments Yes 0 (1 standard drink = 0.6 oz pur e alcohol) Comments Unknown Sex and Gender Information Value Date Recorded Sex Assigned at Not on file Legal Sex Female 11:13 AM EST Gender Identity Not on file Sexual Orientation Not on file Obstetrics History Plan of Treatment Health Maintenance Due Date Last Done Comments Hepatitis B Vaccines (1 of 3 - 19+ 3-dose series) 2015 Cervical Cancer Screening: P ap Smear 2017 Depression Screening 04/26/2022 HIV Screening 04/26/2022 Hepatitis C Screening 04/26/2022 Social Influencers of Health Screening 04/26/2022 COVID-19 Vaccine (2023-2 5 season) 2024 Influenza Vaccine (#1) 2024 DTaP,Tdap,and Td Vaccines (2 - Td or Tdap) 05/02/2032 05/02/2022 HIB Vaccines Aged Out No longer eligi ble based on patient's age to complete this topic HPV Vaccines Aged Out No longer eligi ble based on patient's age to complete this topic Hepatitis A Vaccines Aged Out No long er eligible based on patient's age to complete this topic IPV Vaccines Aged Out No longer eligi ble based on patient's age to complete this topic MMR Vaccines Aged Out No longer eligi ble based on patient's age to complete this topic Meningococcal ACWY Vaccine Aged Out N o longer eligible based on patient's age to complete this topic Meningococcal B Vacine Aged Out No lo nger eligible based on patient's age to complete this topic Pneumococcal Vaccine: Pediat rics (0 to 5 Years) and At-Risk Patients (6 to 64 Years) Aged Out No longer eligi ble based on patient's age to complete this topic RSV Immunization Patients Un vitaliy 20 months Aged Out No longer eligible b ased on patient's age to complete this topic Varicella Vaccines Aged Out No longer eligible based on patient's age to complete this topic Care Teams Flooring Mechanic Relationship Specialty Start Date End Date Trina Connolly MD [address] [place] [address] , [address] [facility] [place], [place] PCP - General Internal Medicine 07/26/18
--- OUTSIDE RECORDS SUMMARY | 2024-08-27 18:59 | XMS_ITS | Data Portability ---
Author Organization [facility] [address] Address [address] [place] [address] Care Team Providers Care International Coordinator Name Role Phone [facility] Primary Care Provider [phone] Assessment No assessment recorded. Plan of Treatment Reminders Order Date Submit Date Provider Last Modified By Organization Details Last Modified Time Details Appointments None recorded. Lab None recorded. Referral None recorded. Procedures None recorded. Surgeries None recorded. Imaging None recorded. Medication Orders cyclobenzap rine 10 mg tablet 2022 023 [email or web address] [id number] [facility] #[id number], [address] [place], [address], 14:33:16 Patient TargetsNo targets recorded. Patient Instructions Encounter Date Encounter Id Patient Instructions Last Modified By Organization Details Last Modified Time 12/17/2022 [id number] getting back to normal after low back pain: care instructions [id number] Not available 12/17/2022 16:46:39 You can take ove r the counter extra strength tylenol per package instructions for the pain. See printed instructions. Follow-up with your doctor if no improvement in 1 week. Seek Emergency Medical evaluation for any worsening symptoms. [id number] Not available 12/17/2022 16:46:38 Reason for Referral None Reported. Problems Name Problem SNOMED Code Status Onset Date Resolution Date Notes Provider Name and Address Organization Details Recorded Time Anxiety [id number] Active [facility] 12/17/2022 15:39:59 Problem Notes None recorded. Medical Equipment None Reported. Allergies No known drug allergies Medications Name Sig Start Date Stop Date Status Note LastModified by Organization Details LastModified Time cyclobenzap rine 10 mg tablet Take 1 tablet 3 times a day by oral route for 10 days. 2022 active Not Available Not Available Not Avai lable valacyclovi r 1 gram tablet TAKE 1 TABLET BY MOUTH EVERY DAY FOR 5 DAYS 12/17 completed Not Available Not Available Not Available metronidazo le 500 mg tablet TAKE 1 TABLET BY MOUTH TWICE A DAY FOR 7 DAYS 12/17 completed Not Available Not Available Not Available lidocaine 5 % topical patch 12/17 completed Not Available Not Available Not Available cephalexin 500 mg tablet TAKE 1 TABLET BY MOUTH THREE TIMES A DAY 12/17 completed Not Available Not Available Not Available ibuprofen 600 mg tablet TAKE 1 TABLET BY MOUTH THREE TIMES A DAY NEEDED FOR ANALGESIA 12/17 completed Not Available Not Available Not Available bupropion HCl XL 300 mg 24 hr tablet, extended release TAKE 1 TABLET BY MOUTH EVERY DAY IN THE MORNING FOR 30 DAYS active Not Available Not Available No t Available bupropion HCl XL 150 mg 24 hr tablet, extended release TAKE 1 TABLET BY MOUTH EVERY DAY IN THE MORNING FOR 30DAYS active Not Available Not Available No t Available nitrofurant oin monohydrate /macrocryst als 100 mg capsule TAKE 1 CAPSULE BY MOUTH TWICE A DAY FOR 5 DAYS 12/17 completed Not Available Not Available Not Available M- Plus 27 mg iron-1 mg tablet TAKE 1 TABLET BY MOUTH EVERY DAY active Not Available Not Available No t Available Vitals Date Recorded Body height Body mass index (BMI) Body weight Pain severity - 0-10 verbal numeric rating [Score] - Reported Respiratory rate Oxygen saturation Oxygen saturation in Arterial blood by Pulse oximetry Heart rate Body temperature Systolic blood pressure Diastolic blood pressure Provider Name and Address Organization Details Last Updated DateTime 3 162.56 cm 22.3 kg/m2 49296.0 1 g 6 18 /min 99 % 99 % 86 /min 98.7 [degF] 116 mm[Hg] 73 mm[Hg] RENETTA GONZALES RA PA - [facility] 15:38:36 Social History Question Answer Notes LastModified by Organizat ion Details LastModified Time Tobacco Smoking Status Never Smoker AM[facility] Rouse - [facility] 12/17/2022 15:40:14 What Is Your Level Of Alcohol Consumption? None Information not available 12/17/2022 Which Illicit Or Recreational Drugs Have You Used? Marijuana Information not available 12/17/2022 Have You Had Direct Contact, Or Contact During Intimacy, With Monkeypox Rash, Scabs, Or Body Fluids From A Person With Monkeypox? No Information not available 12/17/2022 Do You Use Any Illicit Or Recreational Drugs? Yes Information not available 12/17/2022 Have You Recently Traveled Abroad? No Information not available 12/17/2022 Do You Or Have You Ever Used Any Other Forms Of Tobacco Or Nicotine? No Information not available 12/17/2022 Sex: Unknown Functional Status None recorded. Mental Status None recorded. Family History Relationship Description Onset Age of this Age Resolved Age Notes LastModified by Organization Details LastModified Time Father No current problems or disability Not available 15:40:03 Mother No current problems or disability Not available 15:40:03 Medical History No medical history recorded. Gynecological History Statement/Question Response Date of LMP 10/15/2022 Is there any chance of ? Yes LMP Approximate Obstetrics History GPAL:G 0 P 0 0 0 0 Immunizations Vaccine Type Date Status Note Provider Nam e and Address Organization Details Recorded Time MMR 1997 completed RENETTA HAMILTON-OWEN null, PA - [facility] 12/17/2022 15:39:13 COVID-19, mRNA, LNP-S, PF, 30 mcg/0.3 mL dose 03/10/2021 completed RENETTA HAMILTON-OWEN null, PA - [facility] 12/17/2022 15:39:13 COVID-19, mRNA, LNP-S, PF, 30 mcg/0.3 mL dose 03/31/2021 completed RENETTA HAMILTON-OWEN null, PA - [facility] 12/17/2022 15:39:13 COVID-19, mRNA, LNP-S, PF, 30 mcg/0.3 mL dose, get-sucrose 09/05/2021 completed RENETTA MINAA null, PA - [facility] 12/17/2022 15:39:13 Tdap 07/09/2018 completed RENETTA HAMILTON-OWEN null, PA - [facility] 12/17/2022 15:39:13 Tdap 05/02/2022 completed RENETTA HAMILTON-OWEN null, PA - [facility] 12/17/2022 15:39:13 Hep B, unspecified formulation 1996 completed RENETTA HAMILTON-OWEN null, PA - [facility] 12/17/2022 15:39:13 Influenza, high-dose, trivalent, PF 07/09/2018 completed RENETTA HAMILTON-OWEN null, PA - [facility] 12/17/2022 15:39:13 Hep B, adult 07/18/2018 completed RENETTA HAMILTON-OWEN null, PA - [facility] 12/17/2022 15:39:13 Hep A, ped/adol, 2 dose 11/04/2014 completed RENETTA HAMILTON-OWEN null, PA - [facility] 12/17/2022 15:39:13 Influenza, split virus, quadrivalent, PF 03/27/2020 completed RENETTA HAMILTON-OWEN null, PA - [facility] 12/17/2022 15:39:13 Past Encounters Encounter ID Performer Location Encounter Start Date Encounter Closed Date Diagnosis/Indication Diagnosis SNOMED-CT Code Diagnosis ICD10 Code Diagnosis Note [id number] ANNA RÍOS [place] [address] [facility] [address] [place] [address] 12/17/2022 15:19:38 12/17/2022 17:19:04 Spasm of muscle of lower back [id number] M62.830 MUSCU LOSKELETAL PAIN can be managed quite effectivel y with over the counter medication s and home treatments . When suffering from sprains, strains, contusions and other types of very painful but non-danger ous musculoske letal pain try the following: ?1. ACETAMINOP HEN 1,000 mg or 6 hours is needed for pain.?2. Heat - Apply moist heat to affected area 3 times a day for 20 minutes at a time. Do not sleep with a heating pad as it may cause skin gunderson.?3. Topical medication such as Stop Pain feels good to rub on painful areas. Do not apply over broken skin.?4. Many musculoske letal injuries can benefit from gentle stretching or strengthen ing exercises. 5. Wear a back support brace while working to take the strain of of you back.?If pain does not improve please see your doctor or return to [facility] within one week. If your symptoms become severe or uncontroll ed or if you develop new concerning symptoms please go to the Emergency Department for evaluation and pain control. Health Concerns Section Related Observation LastModified by Organization Detai ls LastModified Time None Recorded Concern Status LastModified by Organization Details LastModified Time None Recorded Advance Directives Directive None Recorded Payers Encounter Date Sequence Insurance Name Policy Number Policy Dill Covered Member ID Dill Member ID Guarantor Name 12/17/2022 1 [facility] ([facility] BENNETT Fraser [id number] Carol Fraser Notes Date Note Type Note Provider Name and Address Organization Details Recorded Time 12/17/2022 text/html Back Pain/Injury UCReported bypatient.Location :lower back; pain is not radiating Quality:dull;tight ness;muscle spasms Severity:pain level 6/10 Duration:1 weeks Context:work injury; lifting; overuse; used medications for back pain Alleviating Factors:analgesics ; heat; lying down; relieved by changing position Aggravating Factors:bending over/standing up;going from sit to stand Previous InjuryNo prior injury to affected body part 27 yo female pt presents with lower back pain x ~1 week. 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 She was seen in [facility] ER on 12/12/2022 and was given a work note to be excused from work until 01/14/2023, but she hasn't been able to return. She is also 5 weeks . She wants a note to be able to return to work. ANNA RÍOS MD [address] [place], [address], [place] - [facility] 12/31/2022 16:19:32 OBGyn Episode No OBEpisode recorded.
== END 2024-08-27 17:36 | disposition home or self-care (01) ==
LOC: HO.HMCH 17:03
PROVIDERS: PCP Internal Medicine; Visit Provider Internal Medicine
DX: Z00.00 Encounter for general adult medical examination without abnormal findings (principal); E28.2 Polycystic ovarian syndrome; L65.9 Nonscarring hair loss, unspecified; F41.9 Anxiety disorder, unspecified; F12.90 Cannabis use, unspecified, uncomplicated; E66.3 Overweight; Z12.4 Encounter for screening for malignant neoplasm of cervix

== ENCOUNTER → 2024-08-27 17:03 | Outpatient (BNVA) | payer OTHER, SELFPAY | PROVIDERS: PCP Internal Medicine; Visit Provider Internal Medicine | DX: Z00.01 Encounter for general adult medical examination with abnormal findings (principal); E28.2 Polycystic ovarian syndrome; L65.9 Nonscarring hair loss, unspecified; F41.9 Anxiety disorder, unspecified; F12.90 Cannabis use, unspecified, uncomplicated; E66.3 Overweight; D64.9 Anemia, unspecified; E78.00 Pure hypercholesterolemia, unspecified; R30.0 Dysuria; E55.9 Vitamin D deficiency, unspecified | CPT/HCPCS: 96127; 99395 ==

== ENCOUNTER 2024-11-13 15:26 | Outpatient (REF) | payer MEDICAID, SELFPAY ==
--- OUTSIDE RECORDS SUMMARY | 2024-11-13 17:43 | XMS_ITS | Data Portability ---
Author Organization [facility] [address] Address [address] [place] [address] Care Team Providers Care Relations Mgr Name Role Phone [facility] Primary Care Provider Assessment No assessment recorded. Plan of Treatment Reminders Order Date Submit Date Provider Last Modified By Organization Details Last Modified Time Details Appointments None recorded. Lab None recorded. Referral None recorded. Procedures None recorded. Surgeries None recorded. Imaging None recorded. Medication Orders cyclobenzap rine 10 mg tablet 2022 023 [email or web address] [facility] #[id number], [address] [place], [address], 14:33:16 Patient TargetsNo targets recorded. Patient Instructions Encounter Date Encounter Id Patient Instructions Last Modified By Organization Details Last Modified Time 12/17/2022 [id number] getting back to normal after low back pain: care instructions [email or web address] Not available 12/17/2022 16:46:39 You can take ove r the counter extra strength tylenol per package instructions for the pain. See printed instructions. Follow-up with your doctor if no improvement in 1 week. Seek Emergency Medical evaluation for any worsening symptoms. [email or web address] Not available 12/17/2022 16:46:38 Reason for Referral None Reported. Problems Name Problem SNOMED Code Status Onset Date Resolution Date Notes Provider Name and Address Organization Details Recorded Time Anxiety 87165881 Active [facility] 12/17/2022 15:39:59 Problem [...] completed Not Available Not Available Not Available M-Lisa Plus 27 mg iron-1 mg tablet TAKE 1 TABLET BY MOUTH EVERY DAY active Not Available Not Available No t Available Vitals Date Recorded Body height Body mass index (BMI) Body weight Respiratory rate Oxygen saturation Oxygen saturation in Arterial blood by Pulse oximetry Heart rate Body temperature Systolic blood pressure Diastolic blood pressure Provider Name and Address Organization Details Last Updated DateTime 3 162.56 cm 22.3 kg/m2 98053.0 1 g 18 /min 99 % 99 % 86 /min 98.7 [degF] 116 mm[Hg] 73 mm[Hg] RENETTA GONZALES RA PA - [facility] 15:38:36 Social History Question Answer Notes LastModified by Organizat ion Details LastModified Time Tobacco Smoking Status Never Smoker [facility]Y Rouse - [facility] 12/17/2022 15:40:14 Which Illicit Or Recreational Drugs Have You Used? Marijuana Information not available 12/17/2022 Have You Had Direct Contact, Or Contact During Intimacy, With Monkeypox Rash, Scabs, Or Body Fluids From A Person With Monkeypox? No Information not available 12/17/2022 Have You Recently Traveled Abroad? No Information not available 12/17/2022 Sex: Unknown Functional Status Question Answer Note LastModified by Organizat ion Details LastModified Time Do you use any illicit or recreational drugs? Yes Information not available 12/17/2022 Do you or have you ever used any other forms of tobacco or nicotine? No Information not available 12/17/2022 What is your level of alcohol consumption? None Information not available 12/17/2022 Mental Status None recorded. Family History Relationship [...] mcg/0.3 mL dose, get-sucrose 09/05/2021 completed RENETTA WILLARD null, PA - [facility] 12/17/2022 15:39:13 [...] SNOMED-CT Code Diagnosis ICD10 Code Diagnosis Note [id number] ANNA RÍOS MD [address] [facility] [address] [place] [address] 12/17/2022 15:19:38 12/17/2022 17:19:04 Spasm of muscle of lower back [id number] M62.830 MUSCU LOSKELETAL PAIN can be managed quite effectivel y with over the counter medication s and home treatments . When suffering from sprains, strains, contusions and other types of very painful but non-danger ous musculoske letal pain try the followin. ACETAMINOP HEN 1,000 mg or 6 hours is needed for pain. 2. Heat - Apply moist heat to affected area 3 times a day for 20 minutes at a time. Do not sleep with a heating pad as it may cause skin gunderson. 3. Topical medication such as Stop Pain feels good to rub on painful areas. Do not apply over broken skin. 4. Many musculoske letal injuries can benefit from gentle stretching or strengthen ing exercises. 5. Wear a back support brace while working to take the strain of of you back. If pain does not improve please see your [...] Recorded Advance Directives Directive None Recorded Payers Insurance Date Sequence Insurance Name Policy Number Policy Dill Covered Member ID Dill Member ID Guarantor Name 12/17/2022 1 [place] [facility] Carol Zayasmudez [id number] Carol Evelio 12/31/2022 1 [facility] [place] Carol Fraser [id number] Carol Fraser Notes Date Note Type Note [...] x ~1 week. 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 She was seen in [facility] ER on 12/12/2022 and was given a work note to be excused from work until 01/14/2023, but she hasn't been able to return. She is also 5 weeks . She wants a note to be able to return to work. ANNA RÍOS MD [address] [place], [address], [place] - [facility] 12/31/2022 16:19:32 OBGyn Episode No OBEpisode recorded.
[2024-11-14 08:28] LABS: HBS Num1 3.66 mIU/mL (0-7.99); ~Hepatitis B Surface Antibody NONREACTIVE (Nonreactive)
[2024-11-14 09:23] LABS: Varicella IgG Antibody 2.67 S/CO
[2024-11-14 09:29] LABS: Rubella IgG Antibody 2.59 Index
[2024-11-15 23:38] LABS: TS Negative Control Passed; TS Panel A 4; TS Panel B 6; TS Positive Control Passed; TSpotTB Borderline (Negative)
== END 2024-11-13 15:27 | disposition home or self-care (01) ==
LOC: HO.LAB 15:26
PROVIDERS: Physician Assistant; PCP Internal Medicine; Visit Provider Internal Medicine
DX: Z78.9 Other specified health status (principal); Z11.1 Encounter for screening for respiratory tuberculosis; Z01.84 Encounter for antibody response examination
CPT/HCPCS: 36415; 86481; 86706; 86735; 86762; 86765; 86787

== ENCOUNTER 2024-11-19 14:38 | Outpatient (REF) | payer MEDICAID, SELFPAY ==
--- OUTSIDE RECORDS SUMMARY | 2024-11-19 17:51 | XMS_ITS | Data Portability ---
Author Organization [facility] [address] Address [address] [place] [address] Care Team Providers Care [employer] Jointer Name Role Phone [facility] Primary Care Provider [phone] Assessment No assessment recorded. Plan of Treatment Reminders Order Date Submit Date Provider Last Modified By Organization Details Last Modified Time Details Appointments None recorded. Lab None recorded. Referral None recorded. Procedures None recorded. Surgeries None recorded. Imaging None recorded. Medication Orders cyclobenzap rine 10 mg tablet 2022 023 [email or web address] 247 [facility]acy #[id number], [address] [place], [address], 14:33:16 Patient TargetsNo targets recorded. Patient Instructions Encounter Date Encounter Id Patient Instructions Last Modified By Organization Details Last Modified Time 12/17/2022 [id number] getting back to normal after low back pain: care instructions [email or web address] Not available 12/17/2022 16:46:39 You can take ove r the counter extra strength tylenol per package instructions for the pain. See printed instructions. Follow-up with your doctor if no improvement in 1 week. Seek Emergency Medical evaluation for any worsening symptoms. [email or web address] Not available 12/17/2022 16:46:38 Reason for Referral None Reported. Problems Name Problem SNOMED Code Status Onset Date Resolution Date Notes Provider Name and Address Organization Details Recorded Time Anxiety 50749760 Active [facility] 12/17/2022 15:39:59 Problem [...] completed Not Available Not Available Not Available M-Ilsa Plus 27 mg iron-1 mg tablet TAKE [...] Updated DateTime 3 162.56 cm 22.3 kg/m2 36701.0 1 g 18 /min 99 % 99 % 86 /min 98.7 [degF] 116 mm[Hg] 73 mm[Hg] RENETTA Lucero [facility] 15:38:36 Social History Question Answer Notes LastModified by Organizat ion Details LastModified Time Tobacco Smoking Status Never Smoker AMY Rouse [facility] 12/17/2022 15:40:14 Which Illicit Or [...] mcg/0.3 mL dose, get-sucrose 09/05/2021 completed RENETTA HAMILTON-OWEN null, PA - [facility] [...] SNOMED-CT Code Diagnosis ICD10 Code Diagnosis Note [id number] ANNA RÍOS MD [address] [place] [address] 12/17/2022 15:19:38 12/17/2022 17:19:04 Spasm of muscle of lower back [id number] M62.830 MUSCU LOSKELETAL PAIN can be managed [...] Dill Member ID Guarantor Name 12/17/2022 1 [place] [facility] Carol Evelio [id number] Carol Evelio 12/31/2022 1 [facility] Carol Evelio [id number] Carol Evelio Notes Date Note Type Note Provider Name [...] x ~1 week. 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 She was seen in [facility] ER on 12/12/2022 and was given a work note to be excused from work until 01/14/2023, but she hasn't been able to return. She is also 5 weeks . She wants a note to be able to return to work. ANNA RÍOS MD [address] [place], [address], [place] - [facility] 12/31/2022 16:19:32 OBGyn Episode No OBEpisode recorded.
[2024-11-21 19:54] LABS: TS Negative Control Passed; TS Panel A 5; TS Panel B 2; TS Positive Control Passed; TSpotTB Borderline (Negative)
== END 2024-11-19 14:39 | disposition home or self-care (01) ==
LOC: HO.LAB 14:38
PROVIDERS: PCP Internal Medicine; Visit Provider Physician Assistant
DX: Z11.1 Encounter for screening for respiratory tuberculosis (principal)
CPT/HCPCS: 36415; 86481

== ENCOUNTER 2024-11-25 12:28 | Outpatient (REF) | payer MEDICAID, SELFPAY ==
--- NOTE | ~2024-11-25 | XR_ITS ---
CLINICAL HISTORY: R76.11 - Nonspecific reaction to tuberculin skin test without active tub... 2 view chest x-ray. Comparison: None Findings: The lungs are well expanded and clear. No consolidation or effusion. Heart size normal. No passive venous congestion. No evidence of primary or reactivation tuberculosis. No midline shift or tracheal deviation. No acute fracture. Impression: 1. No radiographic evidence of primary or reactivation tuberculosis This document has been electronically signed by: Jr Blake MD on 11/26/2024 12:58:55
--- OUTSIDE RECORDS SUMMARY | 2024-11-25 12:58 | XMS_ITS | Clinical Summary ---
Author Organization [facility] Address [address] [place] [address] Care Team Providers Care Patient Case Manager Name Role Phone Trina Connolly MD Primary Care Provider [phone] Social History Tobacco Use Types Packs/Day Years [...] Vaccine (2023-2 5 season) 2024 Influenza Vaccine (Season Ended) 2025 DTaP,Tdap,and Td Vaccines (2 - Td or [...] age to complete this topic Meningococcal B Vaccine Aged Out No l onger eligible based on patient's age to complete [...] age to complete this topic Care Teams Patient Case Manager Relationship Specialty Start Date End Date Trina Connolly MD [address] [place] [address] , [address] [facility]A: [facility] [place], [place] PCP - General Internal Medicine 07/26/18
== END 2024-11-25 12:29 | disposition home or self-care (01) ==
LOC: HO.XRAY 12:28
PROVIDERS: PCP Internal Medicine; Visit Provider Internal Medicine
DX: R76.11 Nonspecific reaction to tuberculin skin test without active tuberculosis (principal)
CPT/HCPCS: 71046

== ENCOUNTER → 2024-11-25 12:31 | Outpatient (BNV) | payer MEDICAID, SELFPAY | PROVIDERS: PCP Internal Medicine; Visit Provider Radiology Diagnostic Radiology | DX: R76.11 Nonspecific reaction to tuberculin skin test without active tuberculosis (principal) | CPT/HCPCS: 71046 ==